=== PATIENT | female | born 1965 | race American Indian/Alaskan Native ===

== ENCOUNTER 2019-02-12 07:22 | Inpatient (IN) ==
[2019-02-05 12:18] LABS: Appearance,Urine CLEAR; Bilirubin,Urine NEG (NEG); Color,Urine YELLOW; Culture Indicated,Urine NO; Glucose,Urine (UA) NEGATIVE (NEG); Ketones,Urine NEG (NEG); Leukocyte Esterase,Urine NEG /uL (NEG); Nitrate,Urine NEG (NEG); Protein,Urine NEG (NEG); Specific Gravity,Urine 1.024 (1.000-1.035); Urine Blood NEG mg/dL (<0.03); Urobilinogen,Urine NEG (NEG)
[2019-02-05 15:16] LABS: Basophils # (Auto) 0.1 K/mcL (0.0-0.3); Basophils % (Auto) 1.1 % (0.0-2.0); Eosinophils # (Auto) 0.4 K/mcL (0.0-0.7); Eosinophils % (Auto) 7.3 % (0.0-7.0); Granulocytes % (Auto) 43.9 % (38.0-78.0); Hematocrit 43.4 % (36.0-48.0); Hemoglobin 14.9 g/dL (12.0-15.0); Lymphocytes # (Auto) 2.1 K/mcL (1.5-4.8); Lymphocytes % (Auto) 41.1 % (15.5-49.0); Mean Cell Volume 91.3 fL (80.0-100.0); Mean Corpuscular HGB Conc 34.2 g/dL (31.0-36.0); Monocytes # (Auto) 0.3 K/mcL (0.1-0.9); Monocytes % (Auto) 6.6 % (1.0-12.0); Platelet Count 222 K/mcL (140-440); RBC 4.75 M/mcL (4.00-5.20); Red Cell Distribution Width 12.3 % (11.5-14.5); WBC 5.2 K/mcL (4.5-11.0)
[2019-02-05 15:21] LABS: Blood Urea Nitrogen 20 mg/dl (6-20); Calcium 9.7 mg/dl (8.6-10.4); Carbon Dioxide 25 mmol/L (22-30); Chloride 107 mmol/L (96-108); Glomerular Filtration Rate 103; Glucose 109 mg/dL (70-105)
[2019-02-05 16:00] LABS: Estimated Average Glucose(eAG) 108 mg/dL; Hemoglobin A1C 5.4 % HGB (4.0-6.0)
[~2019-02-12 07:22] MED LIST: 0.9 % SODIUM CHLORIDE 9 ML, KETOROLAC 30 MG, ROPIVACAINE HCL/PF 49.5 ML, EPINEPHrine 0.... IJ SCH; CELECOXIB 200 MG CAPSULE PO SCH; IPRATROPIUM/ALBUTEROL 3 ML AMPUL.NEB NEB PRN; PREGABALIN 75 MG CAPSULE PO SCH; SCOPOLAMINE 1 PATCH PATCH TOPICAL ONE; ceFAZolin 2 GM in DEXTROSE 5% IN WATER 50 ML IV SCH; oxyCODONE 10 MG TAB.ER.12H PO SCH
[2019-02-12] MEDS ORDERED: KETAMINE 100 MG/ML ML IV ONE (10:40)
[2019-02-12] MEDS ORDERED: ONDANSETRON 4 MG/2 ML VIAL IV ONE (10:40)
[2019-02-12] MEDS ORDERED: PHENYLEPHRINE 10 MG/ML VIAL IV ONE (10:40)
[2019-02-12] MEDS ORDERED: PROPOFOL 200 MG/20 ML VIAL IV ONE (10:40)
[2019-02-12] MEDS ORDERED: TRANEXAMIC ACID 1,000 MG/10 ML VIAL IV ONE ×2 (10:40→12:25)
[2019-02-12] MEDS ORDERED: LIDOCAINE HCL/PF 100 MG/5 ML SYRINGE IV ONE (10:40)
[2019-02-12] MEDS ORDERED: GLYCOPYRROLATE 0.2 MG/ML VIAL IV ONE (10:40)
[2019-02-12] MEDS ORDERED: DEXAMETHASONE 10 MG/ML VIAL IV ONE (10:40)
[2019-02-12] MEDS ORDERED: ROPIVACAINE HCL/PF 30 ML VIAL IJ ONE (10:40)
[2019-02-12] MEDS ORDERED: diphenhydrAMINE 50 MG/ML VIAL IV ONE (10:40)
[2019-02-12] MEDS ORDERED: MAGNESIUM HYDROXIDE 30 ML ORAL.SUSP PO PRN (12:25)
[2019-02-12] MEDS ORDERED: POLYETHYLENE GLYCOL 3350 17 GM PACKET PO PRN (12:25)
[2019-02-12] MEDS ORDERED: FLEETS ADULT ENEMA PR PRN (12:25)
[2019-02-12] MEDS ORDERED: ONDANSETRON 4 MG/2 ML VIAL IV PRN (12:25)
[2019-02-12] MEDS ORDERED: HYDROcodone/APAP 10/325MG TABLET PO PRN (12:25)
[2019-02-12] MEDS ORDERED: BENZOCAINE/MENTHOL 1 LOZENGE PO PRN (12:25)
[2019-02-12] MEDS ORDERED: BISACODYL 10 MG SUPP.RECT PR PRN (12:25)
--- NOTE | 2019-02-12 12:25 | Brief Operative Note ---
Date of procedure: 02/12/19 Pre-op diagnosis: Left knee DJD Post-op diagnosis: same Procedure: Left robotic assisted total knee arthroplasty Grafts/Implants: Yes (Mirta Triathlon CR 2 femur, 2 tibia, 10mm insert, 31 patella) Anesthesia: spinal, GLMA Findings: arthritis Complications: none Surgeon: Darío Drake Venereal Disease Control Head: Ben Junior Estimated blood loss (cc): 50 Specimens Removed/Pathology: none sent Condition: stable Disposition: PACU
--- NOTE | 2019-02-12 13:28 | XRay Report ---
CLINICAL INFORMATION: Postsurgical follow-up TECHNIQUE: AP, crosstable lateral, patellar views of left knee COMPARISON: Preoperative evaluation dated 01/07/2018 FINDINGS: Status post left total knee arthroplasty. Femoral and tibial component are in anatomic positions. There is postsurgical soft tissue and intra-articular gas. IMPRESSION: Status post left total knee arthroplasty Interpreted and Authenticated by: Jay Weinberg 02/12/19
--- NOTE | 2019-02-12 14:49 | Discharge Summary ---
Providers - Providers Patient information: Note initiated : 02/12/19 at 2:47 pm Service Date, if different from initiated Date: [] Patient: Juana Morocho 53 y/o F admitted on 02/12/19 for Left Total Knee Arthroplasty. Chief Complaint: [] Discharge date: 02/13/19 Hospitalization Hospital Course: Pt was admitted for a L TKA. Pt underwent the procedure on the day of admission. Pt was transferred to the floor for IV pain meds, IV abx and PT. Pt discharged on post-op day 1. Pt will take ASA for DVT prophylaxis. f/u in 2 weeks at [facility]. Discharge diagnosis: L knee OA Exam - Exam Weight bearing status: as tolerated Ortho Discharge - TKA - Patient Instructions Diet: Regular Diet Activity: activity as tolerated Total Knee Protocol: For Total Knee: Start ROM JA with stationary bike or rocking chair. Work on gaining full extension of knee. Posterior dislocation precautions provided. Hip abductor strengthening and gait training instructions provided. Apply Cryocuff as instructed. Dressing Care: May shower in 2 days - Follow Up Plan Disposition: Home, Self-Care Prognosis: Good Rehab Potential: Good Overall status at discharge: patient is progressing back to baseline - Orders For Discharge Prescriptions: Aspirin 81 mg PO BID #30 tab.chew Transmission Status: Pending to [facility] HYDROcodone/APAP 10/325MG [[place] 10-325Mg] 1 - 2 tab PO Q4HP PRN #80 tab PRN Reason: Pain Level 3-6 Prescription Printed Pending Studies Resuscitation Status Full Code Diet Regular Diet Start SatFeb 12 1230 Celecoxib (Celebrex) 200 mg PO PREOP MAURA Stop: 02/12/19 16:00 Last Admin: 02/12/19 08:18 Dose: 200 mg Documented by: AMINAH Sodium Chloride 9 ml/Ketorolac Tromethamine 30 mg/Ropivacaine 49.5 ml/Epinephrine HCl 0.5 mg 0 ml IJ ONCE MAURA Stop: 02/12/19 16:00 Last Admin: 02/12/19 12:00 Dose: 100 ml Documented by: MARIE Cefazolin Sodium 2 gm/ (Dextrose) 50 mls @ 100 mls/hr IV PREOP MAURA Stop: 02/12/19 16:00 Last Infusion: 02/12/19 10:51 Dose: 0 mls/hr Documented by: Admin: 02/12/19 10:21 Dose: 100 mls/hr Documented by: [email or web address] Oxycodone HCl (Oxycontin) 10 mg PO PREOP MAURA Stop: 02/12/19 16:00 Last Admin: 02/12/19 08:19 Dose: 10 mg Documented by: AMINAH Pregabalin (Lyrica) 75 mg PO PREOP MAURA Stop: 02/12/19 16:00 Last Admin: 02/12/19 08:19 Dose: 75 mg Documented by: AMINAH
[2019-02-12] MEDS: 0.9 % SODIUM CHLORIDE 1,000 ML IV SCH ×2 (15:39→21:17)
[2019-02-12] MEDS: HYDROmorphone 2 MG/ML VIAL IV PRN ×3 (15:40→17:55)
--- NOTE | 2019-02-12 15:57 | Operative Note ---
DATE OF OPERATION: 02/12/2019 PREOPERATIVE DIAGNOSIS: Left knee osteoarthritis. POSTOPERATIVE DIAGNOSIS: Left knee osteoarthritis. PROCEDURE PERFORMED: Left robotic-assisted total knee arthroplasty placing a Mirta Triathlon cruciate retaining size 2 femoral component, size 2 tibial baseplate, a 10 mm X3 tibial insert with a 31 mm patellar button. SURGEON: Darío Drake M.D. MANAGER MERCHANDISING: Rafael Junior PA-C. The PA's assistance was required for the safe and efficient completion of the entire case. This provider's expertise and technical skill were required throughout the case. The PA assisted with preoperative coordination, intraoperative retraction, wound closure, dressing and splint application, as well as postoperative documentation and care coordination. ANESTHESIA: Spinal plus general. DRAINS: None. SPECIMENS: Bone cuts which were discarded. BLOOD LOSS: 50 mL. POSTOPERATIVE CONDITION: Stable. INDICATIONS FOR SURGERY: This is a 53-year-old female who has had progressive worsening left knee pain. Radiographs showed advanced [id number] osteoarthritis. FINDINGS AT SURGERY: Advanced arthritis with significant osteopenia. Post implantation showed good limb alignment, patellar tracking, and joint stability. PROCEDURE IN DETAIL: The patient had been seen preoperatively. Informed consent had been obtained after discussion of risks and benefits of surgery. Risks including, but not limited to, bleeding, possibly requiring transfusion; infection, possibly requiring implant removal and prolonged IV antibiotics; injury to nerves, blood vessels, and other surrounding structures; anesthetic risks; incomplete or no resolution of symptoms; swelling; stiffness; pain; instability; DVT and pulmonary embolus risks; and the possibility of needing further revision joint surgery. Patient understood and wished to proceed. Correct operative site was marked in preoperative holding, and patient was taken to the operating room and general anesthesia was induced. The left lower extremity was then prepped and draped in normal sterile fashion, and a timeout was performed verifying patient name, operative site, and plan. Ioban was placed over all skin surfaces and an Esmarch was used to exsanguinate the extremity, and tourniquet was inflated to 300 mmHg. A midline incision was made with a scalpel through skin and subcutaneous tissue, then IrriSept was irrigated and a medial parapatellar arthrotomy was made, and then a subperiosteal exposure was done of the anterior medial tibia. Anterior horns of the menisci were removed, as well as retropatellar fat pad. ACL was transected. We then did a resection of the patella freehand, premeasuring thickness and then placing a cut protector after. We then placed our femoral and tibial checkpoints, and then a scalpel was used to make two stab incisions over the femur and two over the tibia and bicortical pins placed. The arrays were connected. The green probe was used to identify medial and lateral malleoli and double-checks were made with the green probe of the femoral and tibial check points. Blue probe was then used to do our mapping. A rongeur was used to remove osteophytes. We then used the spoons to check our flexion-extension gaps and made adjustments to get as close to 17 mm gaps on all four numbers as possible. Once this was completed, we then used the robotic arm to make our bone cuts. The tibia was prepared with the boss reamer and keel punch and externally rotated as bone coverage would allow. A keeled tibial trial was placed, and the femur was elevated. Curved osteotome and curet were used to remove posterior osteophytes. Femoral trial was then impacted and pinned into place. This was placed flush along the lateral cortex of the femur and then peg holes were drilled. A 9 insert trial was placed and then the knee was taken into extension. We then prepared the patella medializing maximally and sized this to a 31 patella. We then checked the patellar tracking and it was stable. We then removed trial implants. Definitive implants were opened while the joint was irrigated with IrriSept. After waiting a minute, we pulse lavaged with saline. Antibiotic cement was mixed and then the cancellous bone surfaces were dried with the CO2 gun. We then cemented the tibia, followed by the femur. Excess cement was removed, and the trial insert was placed, and the knee was taken into extension. The patella was then cemented. After excess cement was removed, we filled the joint with IrriSept. The tibial and femoral check points were removed. The extension was checked and then we removed our arrays and our pins. We injected pain cocktail in the pericapsular and subcutaneous tissues. Once cement had fully hardened, we flexed the knee up. We removed the insert trial, injected pain cocktail in the posteromedial capsule. We then opened a 10 mm X3 CR insert, and this was carefully impacted and verified to be fully seated. The knee was then placed in extension and filled with IrriSept. After a minute it was copiously pulse lavaged with saline. We then flexed the knee to 45 degrees of flexion. A #2 FiberWire [id number] was used around the superior quadrant of the patella, #1 Vicryl [id number] around the inferior quadrant. Running #1 Vicryl was used for patellar tendon and quad tendon. Final IrriSept irrigation was done, after a minute final pulse lavage, and then 2-0 Monocryl was used for subcutaneous and ellie for skin. Xeroform and sterile dressing were applied. Tourniquet was released. The patient was awakened, extubated, and transferred to recovery in stable condition. BJB:nat Job ID: [id number] Doc ID: [id number] Darío Drake MD
[2019-02-12] MEDS: KETOROLAC 30 MG/ML VIAL IV SCH ×2 (17:54→23:50)
[2019-02-12] MEDS: 0.9 % SODIUM CHLORIDE 10 ML SYRINGE IV SCH ×2 (18:00→21:18)
[2019-02-12] MEDS: ceFAZolin 1 GM VIAL IV SCH (19:15)
[2019-02-12] MEDS: DOCUSATE SODIUM 100 MG CAPSULE PO SCH (20:21)
[2019-02-12] MEDS: ASPIRIN 81 MG TAB.CHEW PO SCH (20:22)
[2019-02-12] MEDS: METOPROLOL SUCCINATE 25 MG TAB.XL.24H PO SCH (20:22)
[2019-02-12] MEDS ORDERED: SIMVASTATIN 20 MG TABLET PO SCH (21:00)
[2019-02-12] MEDS ORDERED: SENNOSIDES 1 TABLET PO SCH (21:00)
[2019-02-13] MEDS: ceFAZolin 1 GM VIAL IV SCH (02:14)
[2019-02-13] MEDS: 0.9 % SODIUM CHLORIDE 1,000 ML IV SCH (04:26)
[2019-02-13] MEDS: 0.9 % SODIUM CHLORIDE 10 ML SYRINGE IV SCH (04:26)
[2019-02-13] MEDS: KETOROLAC 30 MG/ML VIAL IV SCH ×2 (05:32→11:45)
[2019-02-13] MEDS ORDERED: LOSARTAN 50 MG TABLET PO SCH (09:00)
[2019-02-13] MEDS ORDERED: ERGOCALCIFEROL (VITAMIN D2) 50,000 UNIT CAPSULE PO SCH (09:00)
[2019-02-13] MEDS ORDERED: HYDROCHLOROTHIAZIDE 12.5 MG CAPSULE PO SCH (09:00)
[2019-02-13] MEDS: METOPROLOL SUCCINATE 25 MG TAB.XL.24H PO SCH (09:06)
[2019-02-13] MEDS: DOCUSATE SODIUM 100 MG CAPSULE PO SCH (09:06)
[2019-02-13] MEDS: ASPIRIN 81 MG TAB.CHEW PO SCH (09:06)
--- NOTE | 2019-02-13 09:45 | Orthopedic Progress Note ---
Subjective Patient information: Note initiated : 02/13/19 at 9:44 am Service Date, if different from initiated Date: [] Patient: Juana Morocho 53 y/o F admitted on 02/12/19 for Left Total Knee Arthroplasty. Chief Complaint: [] Principal diagnosis: s/p total knee arthroplasty Interval history: pain controlled Objective Vital signs: Vital Signs Temp Pulse Resp BP Pulse Ox 02/13/19 09:35 97.7 F 72 16 130/71 96 02/13/19 04:21 98.7 F 72 16 119/62 97 02/12/19 23:58 98.6 F 65 16 106/61 95 02/12/19 18:55 61 116/70 92 02/12/19 15:01 67 128/79 93 02/12/19 14:51 97 02/12/19 14:46 72 120/70 96 02/12/19 14:31 66 119/68 96 02/12/19 14:16 74 129/77 95 02/12/19 14:01 73 122/73 94 02/12/19 13:48 97.8 F 76 16 116/61 94 02/12/19 13:35 77 16 120/67 96 02/12/19 13:20 78 16 130/72 96 02/12/19 13:05 87 16 125/65 98 02/12/19 13:00 79 14 115/67 96 02/12/19 12:55 76 14 109/54 96 02/12/19 12:50 80 15 114/57 96 02/12/19 12:48 97.5 F 82 12 132/67 98 Intake and Output 02/12/19 02/13/19 02/13/19 21:59 05:59 13:59 Intake Total 240 800 Output Total 151 1100 Balance 89 -1100 800 Intake: Oral 240 800 Output: Void Amount 150 1100 # of times incontinent of urine 1 Other: Meal Dinner Percent of Meal Consumed 75% Urine Appearance Clear Clear Urine Color Straw Bright Yellow Urine Odor Normal Weight 220 lb 9.6 oz Intake & Output: Intake & Output 02/12/19 02/13/19 02/13/19 21:59 05:59 13:59 Intake Total 240 800 Output Total 151 1100 Balance 89 -1100 800 Weight 220 lb 9.6 oz Intake: Oral 240 800 Output: Void Amount 150 1100 # of times incontinent of urine 1 Other: Meal Dinner Percent of Meal Consumed 75% Urine Appearance Clear Clear Urine Color Straw Bright Yellow Urine Odor Normal Dressing: Yes clean, Yes dry, Yes intact Neurological exam IM: Yes oriented X3, Yes neurovascular intact - Labs CBC & BMP: 02/05/19 11:02 02/05/19 11:02 Labs: 02/05/19 11:02 Hgb 14.9 Hct 43.4 Assessment and Plan (1) S/P total knee arthroplasty POD#1-stable -d/c home Status: Acute
[2019-02-13] MEDS ORDERED: FLU VACC QS2019-20(6MOS UP)/PF 60 MCG/0.5 ML SYRINGE IM ONE (10:00)
== END 2019-02-13 12:45 | disposition home or self-care (01) | DRG 470 ==
LOC: MEDSUR 07:22
PROVIDERS: ADMIT Orthopaedic Surgery; ATTEND Orthopaedic Surgery